=== PATIENT | female | born 1980 ===

== ENCOUNTER 2021-08-10 06:00 | Outpatient (RCR) | payer BC, MEDICAID, SELFPAY | END 2021-09-09 23:59 | disposition home or self-care (01) | LOC: MPT 06:00 | PROVIDERS: Referring Provider Family Medicine; Visit Provider Family Medicine | DX: M25.551 Pain in right hip (principal) | CPT/HCPCS: 97110; 97140; 97162; G0283 ==

== ENCOUNTER 2023-06-26 20:00 | Outpatient (CLI) | payer BC, MEDICAID, SELFPAY | END 2023-06-26 20:01 | disposition home or self-care (01) | LOC: SLEEP 06-27 05:13 | PROVIDERS: Visit Provider Anesthesiology Pain Medicine | DX: G47.33 Obstructive sleep apnea (adult) (pediatric) (principal); G47.10 Hypersomnia, unspecified; G47.61 Periodic limb movement disorder | CPT/HCPCS: 95810 ==

== ENCOUNTER 2023-08-24 20:00 | Outpatient (CLI) | payer BC, MEDICAID, SELFPAY | END 2023-08-24 20:01 | disposition home or self-care (01) | LOC: SLEEP 08-25 04:42 | PROVIDERS: Visit Provider Anesthesiology Pain Medicine | DX: G47.33 Obstructive sleep apnea (adult) (pediatric) (principal) | CPT/HCPCS: 95811 ==